=== PATIENT | male | born 1970 | race African-American/Black ===

== ENCOUNTER 2019-11-20 22:16 | Emergency (ER) | payer OTHER ==
[~2019-11-20] VITALS: Ht 175.3 cm; Wt 113.0 kg
[2019-11-20] MEDS ORDERED: diphenhydrAMINE 50 MG/ML VIAL ONE (22:47)
[2019-11-20] MEDS ORDERED: HALOPERIDOL LACTATE 5 MG/ML VIAL. ONE (22:47)
--- NOTE | 2019-11-20 22:56 | PHYS DOC ---
Past Medical History Past Medical History: Other Additional Past Medical Histor: PT REFUSING TO ANSWER QUESTIONS Past Surgical History: Other Additional Past Surgical Histo: PT REFUSING TO ANSWER QUESTIONS Smoking Status: Unknown if ever smoked Alcohol Use: None Social History Narrative: UNKNOWN General Adult EDM: Chief Complaint: DRUG ABUSE HPI: HPI: Patient is a 49 year old male presents for evaluation due to altered mental status. Patient arrived via EMS. EMS was called because patient was found rolling around on the ground on the side of the road. Patient suspected of using PCP. On arrival patient in restraints. Patient uncooperative. Patient is yelling and screaming that " Aislinn been shot" Patient swinging arms and kicking legs. Patient was able to pull off restraints and a code carlos was called. Patient was treated with Ativan 2mg initial. Restraints replaced. Minimal improvement with ativan. 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 Patient uncooperative on exam. Redose with medications-- Haldol and Benadryl. Review of Systems: Review of Systems: limited due to intoxication Heart Score: Risk Factors: Risk Factors: DM, Current or recent (<one month) smoker, HTN, HLP, family history of CAD, obesity. Risk Scores: Score 0 - 3: 2.5% MACE over next 6 weeks - Discharge Home Score 4 - 6: 20.3% MACE over next 6 weeks - Admit for Clinical Observation Score 7 - 10: 72.7% MACE over next 6 weeks - Early Invasive Strategies Current Medications: Current Medications Medications (Trade) Dose Ordered Sig/Christy Start Time Stop Time Status Last Admin Dose Admin Diphenhydramine HCl (Benadryl) 50 mg STK-MED ONCE 11/20/19 22:47 11/20/19 22:47 DC Haloperidol Lactate (Haldol Inj) 5 mg STK-MED ONCE 11/20/19 22:47 11/20/19 22:47 DC Lorazepam (Ativan Inj) 2 mg 1X ONCE 11/20/19 23:00 11/20/19 23:01 Allergies: Allergies: Allergies Coded Allergies Type Severity Reaction Last Updated Verified Unable to Assess 11/20/19 No Physical Exam: PE: after observation Constitutional: Well developed, well nourished, no acute distress, non-toxic appearance. [] HENT: Normocephalic, atraumatic, bilateral external ears normal, oropharynx moist, no oral exudates, nose normal. [] Eyes: PERRLA, EOMI, conjunctiva normal, no discharge. [] Neck: Normal range of motion, no tenderness, supple, no stridor. [] Cardiovascular:Heart rate regular rhythm, no murmur [] Lungs & Thorax: Bilateral breath sounds clear to auscultation [] Abdomen: Bowel sounds normal, soft, no tenderness, no masses, no pulsatile masses. [] Skin: Warm, dry, no erythema, no rash. [] Back: No tenderness, no CVA tenderness. [] Extremities: No tenderness, no cyanosis, no clubbing, ROM intact, no edema. [] Neurologic: Alert and oriented X 3, normal motor function, normal sensory function, no focal deficits noted. Psychologic: Affect normal, judgement normal, mood normal. [] Current Patient Data: Vital Signs: Vital Signs Date Time Temp Pulse Resp B/P (MAP) Pulse Ox O2 Delivery O2 Flow Rate FiO2 11/20/19 22:27 99.0 138 24 154/82 (106) 95 Room Air 99.0 EKG: EKG: [] Radiology/Procedures: Radiology/Procedures: [] Course & Med Decision Making: Course & Med Decision Making Pertinent Labs and Imaging studies reviewed. (See chart for details) [] Patient was evaluated for chief complaint. Work-up consisted of labs and urine drug screen. Patient declined IV and lab draw. Patient did provide urine which was positive for alcohol and PCP. Patient did admit to me of using both this evening. Family presented. I discussed with the sons they state patient lives in [place] came to [place] for a sleep study.While sleeping patient was observed to have apneic events. Patient was observed to sobriety.Patient ambulated with a normal steady gait. He was discharged in the care of his sons. Román Disclaimer: Román Disclaimer: This electronic medical record was generated, in whole or in part, using a voice recognition dictation system. Departure Departure Impression: Primary Impression: PCP (phencyclidine) abuse Additional Impression: Altered mental state Disposition: HOME, SELF-CARE Condition: STABLE Patient Instructions: Alcohol and Drug Addiction, Finding Treatment, Substance Abuse-Brief Justicifation of Admission Dx: Justifications for Admission: Justification of Admission Dx: N/A LASHON COFFEY I DO Nov 20, 2019 22:56
[2019-11-20] MEDS ORDERED: HALOPERIDOL LACTATE 5 MG/ML VIAL. IM ONE (23:00)
[2019-11-20] MEDS ORDERED: diphenhydrAMINE 50 MG/ML VIAL IM ONE (23:00)
[2019-11-21 01:01] LABS: BILIRUBIN,URINE NEGATIVE (NEG); CLARITY,URINE CLEAR; COLOR,URINE YELLOW; NITRITE,URINE NEGATIVE (NEG); PROTEIN,URINE 100 mg/dL (NEG-TRACE); UROBILINOGEN,URINE 0.2 mg/dL (0.2 mg/dL)
[2019-11-21 01:04] LABS: SQUAMOUS EPITHELIAL CELL,UR FEW /LPF
[2019-11-21 01:05] LABS: AMORPHOUS SEDIMENT,UR PRESENT /HPF; BACTERIA,URINE 0 /HPF (0-FEW); BARBITURATES NEG (NEG); BENZODIAZEPINES NEG (NEG); CANNABINOIDS NEG (NEG); COCAINE NEG (NEG); GRANULAR CASTS,URINE FEW /HPF; HYALINE CASTS, URINE MODERATE /HPF; METHADONE NEG (NEG); OPIATES NEG (NEG); PHENCYCLIDINE POS (NEG); RBC,URINE 0 /HPF (0-2)
[2019-11-21 01:08] LABS: AMPHETAMINE/METHAMPHETAMINE NEG (NEG)
[2019-11-21 02:13] LABS: BASO # 0.1 x10^3/uL (0.0-0.2); BASO % 1 % (0-3); EOS % 0 % (0-3); HEMATOCRIT 44.6 % (39.0-53.0); HEMOGLOBIN 15.1 g/dL (13.0-17.5); LYMPH # 2.2 x10^3/uL (1.0-4.8); LYMPH % 28 % (24-48); MEAN CORPUSCULAR HEMOGLOBIN 28 pg (25-35); MEAN CORPUSCULAR HGB CONC 34 g/dL (31-37); MEAN CORPUSCULAR VOLUME 84 fL (79-100); MONO # 0.5 x10^3/uL (0.0-1.1); MONO % 7 % (0-9); NEUT % 64 % (31-73); PLATELET COUNT 247 x10^3/uL (140-400); RED BLOOD COUNT 5.33 x10^6/uL (4.30-5.70); RED CELL DISTRIBUTION WIDTH 14.6 % (11.5-14.5); WHITE BLOOD COUNT 7.9 x10^3/uL (4.0-11.0)
[2019-11-21 02:15] VITALS: BP 116/83
[2019-11-21 02:20] LABS: CALCIUM 9.2 mg/dL (8.5-10.1); CREATININE 1.1 mg/dL (0.7-1.3); GFR 86.4; POTASSIUM 3.8 mmol/L (3.5-5.1)
[2019-11-21 02:26] LABS: ALBUMIN 3.5 g/dL (3.4-5.0); ALBUMIN/GLOBULIN RATIO 0.9 (1.0-1.7); TOTAL BILIRUBIN 0.3 mg/dL (0.2-1.0); TOTAL PROTEIN 7.4 g/dL (6.4-8.2)
== END 2019-11-21 02:31 | disposition home or self-care (01) ==
LOC: ER 22:16 → EDBD 22:16 → MERGE 22:16 → ER 11-21 02:31
DX: F16.10 Hallucinogen abuse, uncomplicated (principal); R41.82 Altered mental status, unspecified; Z98.890 Other specified postprocedural states
CPT/HCPCS: 36415; 80053; 80307; 81001; 85025; 96372; 99285; J1200; J1630; J2060